=== PATIENT | female | born 1945 | race Caucasian/White ===

== ENCOUNTER → 2016-10-11 | Outpatient (CLI) | payer MEDICARE, BC ==
[~2016-10-11] VITALS: Ht 157.5 cm; Wt 87.5 kg
[~2016-10-11] MED LIST: ADIPEX-P37.5 MG; ALLOPURINOL100 MG PO; ANUSOL HC25 MG/SUPP RC; ASPIRIN E.C. 8181 MG PO; ASTELIN NASAL S34 ML NS; CALCIUM + D 6001 TAB PO; CETIRIZINE10 MG PO; CHLORTHALIDONE25 MG PO; COLCHICINE PO; COZAAR100 MG PO; DAILY VITAMINS1 TAB PO; FASTIN30 MG PO; FISH OIL 1000MG1 CAP PO; FLUSH; HYGROTON25 MG PO; K-DUR 10 MEQ T10 MEQ PO; LISINOPRIL/HCTZ1 TA1 PO; LISINOPRIL/HCTZ1 TA2 PO; LISINOPRIL40 MG PO; MAGNESIUM PO; NASONEX NS; OSCAL 500 TAB500 MG PO; PHENTERMINE15 MG PO; PHENTERMINE30 M1 PO; TETRACYCLI500 MG/CAP PO; TETRACYCLINE250 MG PO; Testosterone PO; VITAMIN D1000 IU PO; XALATAN EYE DROPS OU; ZYLOPRIM 300MG300 MG PO; ZYRTEC-D 5 MG-11 TER PO; [UNRECOGNIZED DRUG - OTHER] PO
[2016-10-11 11:42] VITALS: BP 134/75; PULSE 78
[2016-10-11 12:13] VITALS: BP 134/75; PULSE 78
== END ==
LOC: LIGHT 12:00
DX: E88.81 Metabolic syndrome and other insulin resistance (principal); G47.33 Obstructive sleep apnea (adult) (pediatric); E66.09 Other obesity due to excess calories; Z68.35 Body mass index [BMI] 35.0-35.9, adult

== ENCOUNTER 2016-12-04 13:12 | Day surgery (SDC) | payer MEDICARE, BC ==
[~2016-12-04] VITALS: Ht 157.5 cm; Wt 79.7 kg
[~2016-12-04 13:12] MED LIST changes: -OSCAL 500 TAB500 MG PO; -ZYRTEC-D 5 MG-11 TER PO
[2016-12-04] MEDS ORDERED: OSCAL 500 TAB500 MG PO (13:40)
[2016-12-04] MEDS ORDERED: VITAMIN D1000 IU PO (13:41)
[2016-12-04] MEDS ORDERED: ZYRTEC-D 5 MG-11 TER PO (13:42)
[2016-12-04 14:09] VITALS: BP 131/80; PULSE 78; TEMP 97.6
[2016-12-04 16:00] VITALS: BP 112/74; PULSE 68; TEMP 98
[2016-12-04 16:15] VITALS: BP 97/62; PULSE 64
[2016-12-04 16:30] VITALS: BP 100/61; PULSE 98
[2016-12-04 16:45] VITALS: BP 95/62; PULSE 56
== END 2016-12-04 17:00 | disposition home or self-care (01) ==
LOC: SDCO 13:12
DX: Z12.11 Encounter for screening for malignant neoplasm of colon (principal); Z86.010 Personal history of colon polyps; E66.9 Obesity, unspecified; E78.2 Mixed hyperlipidemia; G47.33 Obstructive sleep apnea (adult) (pediatric); M10.9 Gout, unspecified; I10 Essential (primary) hypertension; Z79.82 Long term (current) use of aspirin; Z79.899 Other long term (current) drug therapy
CPT/HCPCS: OP; J2250; J2405; J3010; J7030

== ENCOUNTER → 2016-12-06 | Outpatient (CLI) | payer MEDICARE, BC ==
[~2016-12-06] MED LIST changes: +OSCAL 500 TAB500 MG PO; +ZYRTEC-D 5 MG-11 TER PO
== END ==
LOC: MC.RAD 10:13
DX: Z12.31 Encounter for screening mammogram for malignant neoplasm of breast (principal)

== ENCOUNTER → 2017-12-20 | Outpatient (CLI) | payer MEDICARE, BC | LOC: MC.RAD 11:20 | DX: Z12.31 Encounter for screening mammogram for malignant neoplasm of breast (principal) ==

== ENCOUNTER → 2018-12-30 | Outpatient (CLI) | payer MEDICARE, BC | LOC: MC.RAD 09:55 | DX: Z12.31 Encounter for screening mammogram for malignant neoplasm of breast (principal) ==

== ENCOUNTER → 2020-03-01 | Outpatient (CLI) | payer MEDICARE, BC | LOC: MC.RAD 11:22 | DX: Z12.31 Encounter for screening mammogram for malignant neoplasm of breast (principal) ==

== ENCOUNTER → 2021-03-07 | Outpatient (CLI) | payer MEDICARE, BC | LOC: MC.RAD 13:11 | DX: Z12.31 Encounter for screening mammogram for malignant neoplasm of breast (principal) ==

== ENCOUNTER → 2022-03-15 | Outpatient (CLI) | payer MEDICARE, BC | LOC: MC.RAD 03-12 14:15 | DX: Z12.31 Encounter for screening mammogram for malignant neoplasm of breast (principal) ==